=== PATIENT | female | born 1960 | race Asian ===

== ENCOUNTER 2018-03-05 11:28 | Outpatient (AMBR) | payer MEDICARE, MEDICAID, SELFPAY ==
--- NOTE | 2018-02-12 10:12 | PT.OIERPT ---
PT OP Initial Eval Patient Information Pediatric or Adult Patient: Adult PT >13 Visit Reasons: left side weakness Medical Diagnosis: CVA Treatment Dx #1: L sided ms weakness Treatment Dx #2: unsteadiness on gait Start of Care: 02/12/18 Date of Onset: 01/09/2018 Initial Assessment Subjective 58 y/o female who had a CVA 9 years ago. Patient recently complain of increasing weakness LUE and LLE and hand edema. She difficulty with ambulation with gait deviation and difficulty getting in and out of the tub. referred her to Physical therapy to be able to attempt to increase ms strength on the LUE/LLE. Objective (+) edema of the L hand (+) Flexory synergy on the LUE and Extensor synergy of the LLE L hand photograph developer strength 35 lbs. R hand 75lbs ms strength on the LUE/LLE 3-/5 grossly graded (+) Hemiplegic gait, (+) foot drop on LLE TUG test 40.08 secs Tinetti standardized testing balance 03/24, gait 11/18 total score 16 Assessment Patient will benefit from skilled PT services to inhibit L UE flexor spasticity and LLE extensor spasticity. To be able to increase ms strength on LUE, L hand photograph developer strength and LLE. TO help inhibit hemiplegic gait. patient will benefit from L AFO due to foot drop. Will educate the patient about HEP. Patient is pleasant and motivated to participate in therapy. Without therapy, patient has a potential for further decline. Short Term and Long-Term Goals ST. Increase photograph developer strength of L hand to 40lbs 2. Increase ms strength on LUE and LLE to 3/5 grossly graded LTG 1. Increase photograph developer strength to L hand to 45lbs 2. Increase ms strength on LUE/LLE to 4/5 3. I with HEP 4. To have AFO on LLE to help decrease foot drop and assist L foot in DF Treatment Plan 1. thera ex 2. Manual tx 3. Estim 4. NMR-ed 5. Gait training Frequency and Duration 2x/wk x 6 weeks Certification Dates: 02/12/2018 to 05/14/2018
--- NOTE | 2018-02-12 10:30 | PTNOTE_ITS ---
PT OP Initial Eval Patient Information Pediatric or Adult Patient: Adult PT >13 Visit Reasons: left side weakness Medical Diagnosis: CVA Treatment Dx #1: L sided ms weakness Treatment Dx #2: unsteadiness on gait Start of Care: 02/12/18 Date of Onset: 01/09/2018 Initial Assessment Subjective 58 y/o female who had a CVA 9 years ago. Patient recently complain of increasing weakness LUE and LLE and hand edema. She difficulty with ambulation with gait deviation and difficulty getting in and out of the tub. referred her to Physical therapy to be able to attempt to increase ms strength on the LUE /LLE. Objective (+) edema of the L hand (+) Flexory synergy on the LUE and Extensor synergy of the LLE L hand building construction superintendent strength 35 lbs. R hand 75lbs ms strength on the LUE/LLE 3-/5 grossly graded (+) Hemiplegic gait, (+) foot drop on LLE TUG test 40.08 secs Tinetti standardized testing balance 03/24, gait 11/18 total score 16 Assessment Patient will benefit from skilled PT services to inhibit L UE flexor spasticity and LLE extensor spasticity. To be able to increase ms strength on LUE, L hand building construction superintendent strength and LLE. TO help inhibit hemiplegic gait. patient will benefit from L AFO due to foot drop. Will educate the patient about HEP. Patient is pleasant and motivated to participate in therapy. Without therapy, patient has a potential for further decline. Short Term and [facility] Goals ST. Increase building construction superintendent strength of L hand to 40lbs 2. Increase ms strength on LUE and LLE to 3/5 grossly graded LTG 1. Increase building construction superintendent strength to L hand to 45lbs 2. Increase ms strength on LUE/LLE to 4/5 3. I with HEP 4. To have AFO on LLE to help decrease foot drop and assist L foot in DF Treatment Plan 1. thera ex 2. Manual tx 3. Estim 4. NMR-ed 5. Gait training Frequency and Duration 2x/wk x 6 weeks Certification Dates: 02/12/2018 to 05/14/2018
--- NOTE | 2018-02-19 11:57 | PT.ODAYNRPT ---
PT Outpatient Daily Note Date of Service: February 19, 2018 OP Daily Note Pediatric or Adult Patient: Adult PT >13 Visit Reasons: left side weakness Outpatient Physical Therapy Treatment Date: 02/19/18 Subjective: no new complain since the eval Objective: pls see FS Assessment: Patient is motivated to participate in therapy services. HUANG and LLE has ms weakness. Patient were given Dumbell on LUE and lats pull with LUE wrap in the dumbell for security. Scifit on level 4 for resistance execise with biofeedback with tactile cues to give LUE more resistance while moving. Plan: To continue POC toward goals. Pain Present Currently: Yes Length of Time (minutes) of Treatment: 30 Minutes Office Procedures PT Outpatient G-Codes Date of Service PT Date of Service: 02/12/18 G-Codes Walking & Moving Around Mobility Current Status G-Code: G8978: CK 40-60% Mobility Status G-Code: G8979: CJ 20-40% PT Procedures PT Date of Service: 02/12/18 OP PT Eval Mod Complex 30 minutes: Yes
--- NOTE | 2018-02-23 11:23 | PT.ODAYNRPT ---
PT Outpatient Daily Note Date of Service: February 23, 2018 OP Daily Note Pediatric or Adult Patient: Adult PT >13 Visit Reasons: left side weakness Outpatient Physical Therapy Treatment Date: 02/23/18 Subjective: no new complaints Objective: pls see fS Assessment: Patient was late today. She was only seen for 15mins. Patient were given strengthening ex on BLE. Patient has difficulty doing ROM on LLE. Called [facility] today and checked if she could have AFO for L foot due to foot drop. Zeke [place] [facility] [place]. Plan: to continue POC toward goals. Patient will benefit from L AFO due to patient has foot drop and is a high fall risk. Pain Present Currently: No Length of Time (minutes) of Treatment: 15 Minutes Office Procedures PT Outpatient G-Codes Date of Service PT Date of Service: 02/12/18 G-Codes Walking & Moving Around Mobility Current Status G-Code: G8978: CK 40-60% Mobility Status G-Code: G8979: CJ 20-40% PT Procedures PT Date of Service: 02/12/18 OP PT Eval Mod Complex 30 minutes: Yes PT Procedures PT Date of Service: 02/19/18 Therapeutic Exercise 30 minutes: Yes
--- NOTE | 2018-02-23 11:26 | PTNOTE_ITS ---
PT Outpatient Daily Note Date of Service: February 23, 2018 OP Daily Note Pediatric or Adult Patient: Adult PT >13 Visit Reasons: left side weakness Outpatient Physical Therapy Treatment Date: 02/23/18 Subjective: no new complaints Objective: pls see fS Assessment: Patient was late today. She was only seen for 15mins. Patient were given strengthening ex on BLE. Patient has difficulty doing ROM on LLE. Called [facility] today and checked if she could have AFO for L foot due to foot drop. Zeke from [facility] [place], [place] will check her insurance. Plan: to continue POC toward goals. Patient will benefit from L AFO due to patient has foot drop and is a high fall risk. Pain Present Currently: No Length of Time (minutes) of Treatment: 15 Minutes Office Procedures PT Outpatient G-Codes Date of Service PT Date of Service: 02/12/18 G-Codes Walking & Moving Around Mobility Current Status G-Code: G8978: CK 40-60% Mobility Status G-Code: G8979: CJ 20-40% PT Procedures PT Date of Service: 02/12/18 OP PT Eval Mod Complex 30 minutes: Yes PT Procedures PT Date of Service: 02/19/18 Therapeutic Exercise 30 minutes: Yes
--- NOTE | 2018-02-26 10:45 | PTNOTE_ITS ---
PT Outpatient Daily Note Date of Service: February 26, 2018 OP Daily Note Pediatric or Adult Patient: Adult PT >13 Visit Reasons: left side weakness Outpatient Physical Therapy Treatment Date: 02/26/18 Subjective: no new complaints Objective: pls see FS Assessment: communicated with Spencer from [facility] re: patient's AFO and also L elbow splint for positioning due to patient has LUE flexor spasticity. patient tolerated all the mgt today. Patient demonstrates hemiplegic gait. Plan: to continue pOC toward goals. Pain Present Currently: No Office Procedures PT Outpatient G-Codes Date of Service PT Date of Service: 02/12/18 G-Codes Walking & Moving Around Mobility Current Status G-Code: G8978: CK 40-60% Mobility Status G-Code: G8979: CJ 20-40% PT Procedures PT Date of Service: 02/12/18 OP PT Eval Mod Complex 30 minutes: Yes PT Procedures PT Date of Service: 02/19/18 Therapeutic Exercise 30 minutes: Yes PT Procedures PT Date of Service: 02/23/18 Therapeutic Exercise 45 minutes: Yes
--- NOTE | 2018-03-02 12:10 | PT.ODAYNRPT ---
PT Outpatient Daily Note Date of Service: March 02, 2018 OP Daily Note Pediatric or Adult Patient: Adult PT >13 Visit Reasons: left side weakness Outpatient Physical Therapy Treatment Date: 03/02/18 Subjective: no new complaints Objective: pls see FS Assessment: patient were given strengthening ex on LUE with gentle passive stretching towards extension of the elbow and shoulder flexion, (+) ms tightness due to spasticity. strengthening ex on BLE with moderate resistance exercise on the scifit. Plan: to continue pOC toward goals. Pain Present Currently: No Length of Time (minutes) of Treatment: 30 Minutes Office Procedures PT Outpatient G-Codes Date of Service PT Date of Service: 02/12/18 G-Codes Walking & Moving Around Mobility Current Status G-Code: G8978: CK 40-60% Mobility Status G-Code: G8979: CJ 20-40% PT Procedures PT Date of Service: 02/12/18 OP PT Eval Mod Complex 30 minutes: Yes PT Procedures PT Date of Service: 02/19/18 Therapeutic Exercise 30 minutes: Yes PT Procedures PT Date of Service: 02/23/18 Therapeutic Exercise 45 minutes: Yes PT Procedures PT Date of Service: 02/26/18 Therapeutic Exercise 30 minutes: Yes
--- NOTE | 2018-03-05 11:28 | PT.ODAYNRPT ---
PT Outpatient Daily Note Date of Service: March 05, 2018 OP Daily Note Pediatric or Adult Patient: Adult PT >13 Visit Reasons: left side weakness Outpatient Physical Therapy Treatment Date: 03/05/18 Subjective: patient feel sore on her L shoulder after therapy Objective: pls see FS Assessment: patient were given strengthening ex on BUE with gentle passive stretching of L elbow towards extension. Faxed to Dr. Hernandez about L Afo and L elbow splint request. Will wait for his response. Plan: To continue POC toward goals. Pain Present Currently: No Length of Time (minutes) of Treatment: 30 Minutes Office Procedures PT Outpatient G-Codes Date of Service PT Date of Service: 02/12/18 G-Codes Walking & Moving Around Mobility Current Status G-Code: G8978: CK 40-60% Mobility Status G-Code: G8979: CJ 20-40% PT Procedures PT Date of Service: 02/12/18 OP PT Eval Mod Complex 30 minutes: Yes PT Procedures PT Date of Service: 02/19/18 Therapeutic Exercise 30 minutes: Yes PT Procedures PT Date of Service: 02/23/18 Therapeutic Exercise 45 minutes: Yes PT Procedures PT Date of Service: 02/26/18 Therapeutic Exercise 30 minutes: Yes PT Procedures PT Date of Service: 03/02/18 Therapeutic Exercise 30 minutes: Yes
== END 2018-03-05 12:58 | disposition home or self-care (01) ==
PROVIDERS: PCP Physician Assistant; Referring Provider Physician Assistant; Visit Provider Physician Assistant
DX: I10 Essential (primary) hypertension (principal)
CPT/HCPCS: 97110; 97162; 97530; G8978; G8979

== ENCOUNTER 2018-03-30 09:30 | Outpatient (AMBR) | payer MEDICARE, MEDICAID, SELFPAY ==
--- NOTE | 2018-03-09 11:41 | PT.ODAYNRPT ---
PT Outpatient Daily Note Date of Service: March 09, 2018 OP Daily Note Pediatric or Adult Patient: Adult PT >13 Visit Reasons: left side weakness Outpatient Physical Therapy Treatment Date: 03/09/18 Subjective: no new complaints Objective: Pls see FS Assessment: patient were given estim today with AROM on LLE and moderate resistance exercise bicycle. Patient has Grade 1ms strength on quadriceps ms. Called the office of Dr. Hernandez to follow up the orders and they didn't received the fax that I've sent last . This therapist resend it today to a diff fax number. I spoke with Eloise. Will continue to follow up. Plan: to continue POC toward goals. Pain Present Currently: No Length of Time (minutes) of Treatment: 30 Minutes
--- NOTE | 2018-03-12 12:31 | PTNOTE_ITS ---
PT Outpatient Daily Note Date of Service: March 12, 2018 OP Daily Note Pediatric or Adult Patient: Adult PT >13 Visit Reasons: left side weakness Outpatient Physical Therapy Treatment Date: 03/09/18 Subjective: no new complaints Objective: Pls see FS Assessment: patient were given Strengthening ex on LLE and moderate resistance exercise bicycle. Patient has Grade 1ms strength on quadriceps ms. [place] [facility] order for L AFO and L elbow splint was signed and This therapist faxed it to [employer] for processing. Plan: to continue POC toward goals. Pain Present Currently: No Office Procedures PT Procedures PT Date of Service: 03/09/18 Therapeutic Exercise 30 minutes: Yes
--- NOTE | 2018-03-20 13:19 | PT.ODAYNRPT ---
PT Outpatient Daily Note Date of Service: March 20, 2018 OP Daily Note Pediatric or Adult Patient: Adult PT >13 Visit Reasons: left side weakness Outpatient Physical Therapy Treatment Date: 03/20/18 Subjective: no new complaints Objective: pls see FS Assessment: This therapist noticed that the patient's L hand was swollen. patient were educated to see her MD. patient were also given a squeeze ball. Patient said she didn't fall or anything. She said that she could probably drinking a lot of water. Patient were given strengthening ex on RUE with digi extend. Gentle passive stretching of RUE towards shoulder flexion and extension and elbow extension. Strengthening of BUE/BLE with scifit to promote endurance and improve ms strengthening and joint fluidity. Plan: to continue pOC toward goals Length of Time (minutes) of Treatment: 30 Minutes Office Procedures PT Procedures PT Date of Service: 03/09/18 Therapeutic Exercise 30 minutes: Yes PT Procedures PT Date of Service: 03/12/18 Therapeutic Exercise 30 minutes: Yes
--- NOTE | 2018-03-26 13:59 | PT.ODAYNRPT ---
PT Outpatient Daily Note Date of Service: March 26, 2018 OP Daily Note Visit Reasons: left side weakness Outpatient Physical Therapy Treatment Date: 03/26/18 Subjective: pt is very cooperative and in happy mood. pt reports Boyfriend helps her with massaging her L arm. Objective: see flow sheet. Assessment: pt showed up with her elbow brace and AFO. STM to the L biceps and it is very tight but is able to relax during light stretches. pt had more difficult with step ups today due to AFO. pt uses the SPC. pt did better with 3# barbell versus the 5# but with compensation of trunk lean. Plan: continue POC per PT. Length of Time (minutes) of Treatment: 30 Minutes Office Procedures PT Procedures PT Date of Service: 03/09/18 Therapeutic Exercise 30 minutes: Yes PT Procedures PT Date of Service: 03/12/18 Therapeutic Exercise 30 minutes: Yes PT Procedures PT Date of Service: 03/20/18 Therapeutic Exercise 30 minutes: Yes PT Procedures PT Date of Service: 03/26/18 Therapeutic Exercise 30 minutes: Yes
--- NOTE | 2018-03-26 15:52 | PTNOTE_ITS ---
PT Outpatient Daily Note Date of Service: March 26, 2018 OP Daily Note Visit Reasons: left side weakness Outpatient Physical Therapy Treatment Date: 03/26/18 Subjective: pt is very cooperative and in happy mood. pt reports Boyfriend helps her with massaging her L arm. Objective: see flow sheet. Assessment: pt showed up with her elbow brace and AFO. STM to the L biceps and it is very tight but is able to relax during light stretches. pt had more difficult with step ups today due to AFO. pt uses the SPC. pt did better with 3 # barbell versus the 5# but with compensation of trunk lean. Plan: continue POC per PT. Length of Time (minutes) of Treatment: 30 Minutes Office Procedures PT Procedures PT Date of Service: 03/09/18 Therapeutic Exercise 30 minutes: Yes PT Procedures PT Date of Service: 03/12/18 Therapeutic Exercise 30 minutes: Yes PT Procedures PT Date of Service: 03/20/18 Therapeutic Exercise 30 minutes: Yes PT Procedures PT Date of Service: 03/26/18 Therapeutic Exercise 30 minutes: Yes
--- NOTE | 2018-03-30 11:44 | PT.ODS1RPT ---
PT OP Progress/Discharge Note Date of Service: March 30, 2018 Progress Note/DC Note Progress Note/Discharge Note: DC Note Patient Information Pediatric or Adult Patient: Adult PT >13 Visit Reasons: left side weakness Admission Reason: L sided ms weakness Medical Diagnosis: CVA Treatment Dx #1: L sided ms weakness Service Continue Service or Discharge: Discharge Discharge Date: 03/30/18 Plan Treatment Plan: patient will be dc from PT services. Status Subjective: 58 y/o female who had CVA 9 years ago. Patient was seen here in therapy for 10 tx session. No new complaints. Patient is pleasant and cooperative. Objective: TUG score 36.66secs Tinetti score 19/28. High fall risk without the cane Patient ambulates with cane Ms strength on LUE and LLE is 3-5 LUE flexor synergy and LLE extensor synergy. (+) circumduction gait Assessment: Patient was seen here in the therapy for 10 tx session. Patient were given a L elbow splint and a L AFO. Partner and patient were educated on how to properly apply the splint and the L AFO. Overall patient reached maximum rehab potential at this time. Patient and partner were also educated on stretching of the patient's L elbow towards extension. Partner were able to demonstrates 100% accuracy. Plan: Patient will be dc from skilled PT services secondary to maximum rehab potential achieved at this time. Patient were given HEP and is compliant with the HEP. patient were also given squeeze ball. Treatment Provided This POC: Thera ex Gait training HEP Goals Achieved: improve balance in standing. I with HEP AFO on the LLE and elbow splint on LUE. Discharge Comment: Patient will be dc from skilled PT services secondary to maximum rehab potential achieved at this time. Office Procedures PT Procedures PT Date of Service: 03/09/18 Therapeutic Exercise 30 minutes: Yes PT Procedures PT Date of Service: 03/12/18 Therapeutic Exercise 30 minutes: Yes PT Procedures PT Date of Service: 03/20/18 Therapeutic Exercise 30 minutes: Yes PT Procedures PT Date of Service: 03/26/18 Therapeutic Exercise 30 minutes: Yes
== END 2018-04-08 23:59 | disposition home or self-care (01) ==
PROVIDERS: PCP Physician Assistant; Referring Provider Physician Assistant; Visit Provider Physician Assistant
DX: I69.354 Hemiplegia and hemiparesis following cerebral infarction affecting left non-dominant side (principal)
CPT/HCPCS: 97110; G8978; G8979; G8980

== ENCOUNTER → 2024-08-05 | Outpatient (CLI) | payer MEDICARE, MEDICAID, SELFPAY ==
[2024-08-05 11:03] LABS: Basophils % (Auto) 0 % (0-2.5); Eosinophils # (Auto) 0.2 Thou/mm3 (0.0-0.5); Eosinophils % (Auto) 2 % (0-10); Hematocrit 41.7 % (36.0-46.0); Hemoglobin 12.9 g/dL (12.0-16.0); Immature Granulocytes % (Auto) 0 % (0-0); Immature Granulocytes Auto 0.04 Thou/mm3 (0.00-0.00); Lymphocytes % (Auto) 29 % (10-50); Mean Corpuscular HGB Conc 30.9 g/dl (31.0-37.0); Mean Corpuscular Hemoglobin 21.9 pg (25.0-35.0); Mean Corpuscular Volume 71 fL (80-100); Monocytes # (Auto) 0.9 Thou/mm3 (0.0-0.8); Monocytes % (Auto) 8 % (0-12); Neutrophils # (Auto) 6.2 Thou/mm3 (1.8-7.7); Neutrophils % (Auto) 61 % (37-80); Nucleated Red Blood Cell % 0 /100 WBC (0); Platelet Count 401 Thou/mm3 (140-440); RDW Standard Deviation 38.8 fL (36.4-46.3); White Blood Count 10.3 Thou/mm3 (3.6-11.0)
[2024-08-05 11:50] LABS: Glucose Estimated Average 123 mg/dL (80-131); Hemoglobin A1C 5.9 % Hgb (4.8-6.0)
[2024-08-05 11:58] LABS: Vitamin D 25 Hydroxy Total 9.6 ng/mL (7.3-40.2)
[2024-08-05 12:07] LABS: Alanine Aminotransferase 15 U/L (10-49); Albumin, Serum 4.8 gm/dL (3.4-4.8); Albumin/Globulin Ratio 1.7 (1.2-2.2); Alkaline Phosphatase 66 U/L (46-116); Anion Gap 12 (7-16); Aspartate Amino Transferase 14 U/L (0-34); BUN/Creatinine Ratio 19 Ratio (12-20); Bilirubin,Total 0.2 mg/dL (0.3-1.2); Blood Urea Nitrogen 17 mg/dL (9-23); Carbon Dioxide 27.5 mMol/L (20.0-31.0); Chloride 103 mMol/L (98-107); Creatinine (Component) 0.9 mg/dL (0.6-1.3); Globulin 2.8 gm/dL (2.3-3.5); Glucose 92 mg/dL (74-106); Osmolality,Calculated 284 (275-295); Potassium 4.6 mMol/L (3.4-5.1); Sodium 142 mMol/L (136-145); Total Protein 7.6 gm/dL (5.7-8.2); eGFR > 60 See Note
[2024-08-05 12:23] LABS: Cardiac Risk Estimate 3.6 RATIO (3.7-5.6); Cholesterol 196 mg/dL (132-200); HDL Cholesterol 54 mg/dL (40-60); LDL Cholesterol,Calculated 120 mg/dL (0-130); Triglycerides 110 mg/dL (30-150)
== END | disposition home or self-care (01) ==
LOC: COPL 10:37
PROVIDERS: PCP Nurse Practitioner Family; Referring Provider Nurse Practitioner Family; Visit Provider Nurse Practitioner Family
DX: E78.2 Mixed hyperlipidemia (principal); E55.9 Vitamin D deficiency, unspecified; R73.03 Prediabetes; Z79.899 Other long term (current) drug therapy
CPT/HCPCS: 36415; 80053; 80061; 82306; 83036; 84443; 85025; 87077; 87086; 87186

== ENCOUNTER → 2024-08-26 | Outpatient (CLI) | payer MEDICARE, MEDICAID, SELFPAY ==
--- NOTE | 2024-08-26 14:25 | XR_ITS ---
Examination: Bone densitometry Date and time of exam:August 26, 2024 1448 hours INDICATIONS: Menopause age 50 Technique: Lumbar spine and hip total bone mineralization values of an calculated. Peak reference and age match control results have been displayed. Findings: Lumbar spine total bone mineralization is0.901 gm/cm2. This is 1.3 standard deviations below peak reference. This is 0.4 standard deviations above age-matched controls. Hip total bone mineralization is 0.730 gm/cm2 This is 1.7 standard deviations below peak reference. This is 0.5 standard deviations below age-matched controls Impression: There is osteopenia based on lumbar spine measurements. There is osteoporosis based on hip measurements
== END | disposition home or self-care (01) ==
PROVIDERS: Referring Provider Nurse Practitioner Family; Visit Provider Nurse Practitioner Family
DX: M85.88 Other specified disorders of bone density and structure, other site (principal); M81.8 Other osteoporosis without current pathological fracture
CPT/HCPCS: 77080